=== PATIENT | male | born 1960 | race Caucasian/White ===

== ENCOUNTER 2021-03-14 01:22 | Day surgery (SDC) | payer BC, SELFPAY ==
[2021-02-28 14:19] VITALS: BMI 35.9
[2021-03-14 10:44] VITALS: BP 126/71; PULSE 92; RESP 16; TEMP 36.2; O2SAT 99; BMI 35.9
--- NOTE | 2021-03-14 10:50 | WPDGICN ---
Assessment and Plan Assessment and plan (1) Family history of colon cancer in father: Code(s): Z80.0 - Family history of malignant neoplasm of digestive organs Status: Acute Assessment and Plan: Patient has a family history of colon cancer in his father. Plan is for surveillance colonoscopy now and at 5 year intervals in the future. GI Consult Note Consult date/time: 03/14/21 10:50 HPI: Cruz Duval is a 61 year old male Presents for screening colonoscopy. Patient's current weight appetite bowel movements are normal. He denies abdominal pain. He has had no bleeding. Family history is Significant his father had colon cancer. Review of Systems Review of Systems: All systems reviewed & are unremarkable except as noted in HPI and below PMFSH Family History Family History (Updated 01/25/18 @ 14:25 by DOCTOR UNKNOWN) Sibling Cerebrovascular accident Family history of diabetes mellitus in first degree relative Diabetes mellitus Father Carcinoma of colon Other Hypertension Social History Social History Smoking packs per day: 1 Smoking cigarettes per day: 20.0 Years smoked: 20 Smoking pack-years: 20.00 Smoking status: Former smoker Tobacco type: cigarettes Alcohol intake: current Drinks per week: 3 Substance use: current Substance use type: does not use Living arrangements: with family Spiritual care concerns: No Meds Home Medications and Allergies Home Medications Medication Instructions Recorded Confirmed Type atorvastatin 40 mg PO QPM 02/28/21 03/14/21 History ibuprofen-diphenhydramine cit 2 cap PO HS 02/28/21 03/14/21 History [Advil PM] nebivolol [Bystolic] 10 mg PO DAILY 02/28/21 03/14/21 History rivaroxaban [Xarelto] 20 mg PO DAILY 02/28/21 03/14/21 History Allergies Allergy/AdvReac Type Severity Reaction Status Date / Time No Known Allergies Allergy Unverified 03/14/21 10:43 Vital Signs Vital Signs - 24 hr 03/14/21 10:44 Temperature 97.2 F L Pulse Rate 92 Respiratory Rate 16 Blood Pressure 126/71 Pulse Oximetry 99 Exam Narrative: Physical exam reveals patient to be alert. Vital signs are stable. HEENT exam is unremarkable. Patient is anicteric. Lungs are clear to auscultation and percussion. Heart is without murmur or extra sounds. Abdominal exam bowel sounds are present soft nontender with no organomegaly. Digital external rectal exam is normal.
--- NOTE | 2021-03-14 10:53 | P.PNAN_ITS ---
Anes - Initial Pre Proc Eval Procedure: Operation Date: 03/14/21 11:30 Proposed Procedures p Screening Colonoscopy - Lazaro Lay MD Date/Time: 03/14/21 10:53 Surgeon: Lazaro Lay MD Pre Op Diagnosis: family hx of colon ca Patient Data Age: 61 Gender: M Height: 1.73 m Weight: 107 kg Last Vital Signs Temp 97.2 F L 03/14/21 10:44 Pulse 92 03/14/21 10:44 Resp 16 03/14/21 10:44 BP 126/71 03/14/21 10:44 Pulse Ox 99 03/14/21 10:44 Allergies Allergy/AdvReac Type Severity Reaction Status Date / Time No Known Allergies Allergy Unverified 03/14/21 10:43 Home Medications Medication Instructions Recorded Confirmed Type atorvastatin 40 mg PO QPM 02/28/21 03/14/21 History ibuprofen-diphenhydramine cit 2 cap PO HS 02/28/21 03/14/21 History [Advil PM] nebivolol [Bystolic] 10 mg PO DAILY 02/28/21 03/14/21 History rivaroxaban [Xarelto] 20 mg PO DAILY 02/28/21 03/14/21 History Patient hx anesthesia problems: none Family hx anesthesia problems: none Results Review: All pre-operative results and documents have been reviewed as part of the pre-operative evaluation. [facility] Past Medical History Medical History (Updated 03/14/21 @ 10:53 by Lui Howard MD) Atrial fibrillation Hyperlipidemia Hypertension Family History Family History (Updated 01/25/18 @ 14:25 by DOCTOR UNKNOWN) Sibling Cerebrovascular accident Family history of diabetes mellitus in first degree relative Diabetes mellitus Father Carcinoma of colon Other Hypertension Social History Social History Smoking packs per day: 1 Smoking cigarettes per day: 20.0 Years smoked: 20 Smoking pack-years: 20.00 Smoking status: Former smoker Tobacco type: cigarettes Alcohol intake: current Drinks per week: 3 Substance use: current Substance use type: does not use Living arrangements: with family Spiritual care concerns: No Anes - Eval Final PreProcedure Day of Procedure 03/14/21 10:53 Patient weight: obese Heart: irregular rhythm Lungs: clear to auscultation Airway: Mallampati scale Neurological: alert and oriented Last oral intake: >/= 8 hours ASA classification: III Emergent: no Anesthetic plan: proceed Anesthesia type and monitoring: general GIVS and standard monitoring Results Review: All pre-operative results and documents have been reviewed as part of the pre-operative evaluation. Informed Consent: The patient's anesthetic plan and its attendant risks and benefits were discussed with the patient/family/POA. Questions were solicited and answers provided to the satisfaction of the patient/family/POA.
[2021-03-14] MEDS: LACTATED RINGERS 1,000 ML 150 ML IV CONT (10:55)
[2021-03-14 11:34] VITALS: BP 111/74; PULSE 85; RESP 15; O2SAT 97
[2021-03-14 11:44] VITALS: BP 126/71; PULSE 76; RESP 13; O2SAT 95
[2021-03-14 11:54] VITALS: BP 110/77; PULSE 76; RESP 17; O2SAT 98
== END 2021-03-14 12:21 | disposition home or self-care (01) ==
PROVIDERS: PCP Internal Medicine; Visit Provider Internal Medicine Gastroenterology
PROC: 0DJD8ZZ Inspection of Lower Intestinal Tract, Via Natural or Artificial Opening Endoscopic (ICD-10-PCS; CPT 45378; principal; 2021-03-14 11:30)
DX: Z12.11 Encounter for screening for malignant neoplasm of colon (principal); K64.8 Other hemorrhoids; K57.30 Diverticulosis of large intestine without perforation or abscess without bleeding; Z80.0 Family history of malignant neoplasm of digestive organs; I48.91 Unspecified atrial fibrillation; I10 Essential (primary) hypertension; E78.5 Hyperlipidemia, unspecified; Z79.01 Long term (current) use of anticoagulants; Z87.891 Personal history of nicotine dependence; E66.9 Obesity, unspecified; Z68.35 Body mass index [BMI] 35.0-35.9, adult
CPT/HCPCS: 45378; J2704; J7120